=== PATIENT | female | born 2000 | race Caucasian/White ===

== ENCOUNTER 2020-09-18 17:24 | Emergency (ER) | payer BC ==
[~2020-09-18 17:24] MED LIST: AMOXICILLIN500 MG PO
[2020-09-18 20:03] LABS: RED BLOOD COUNT 4.5 M/UL (4.00-5.10); WHITE BLOOD COUNT 7.4 K/UL (4.5-11.0)
[2020-09-18 20:20] LABS: BUN/CREATININE RATIO 15 (0-10)
== END 2020-09-18 21:30 | disposition home or self-care (01) ==
LOC: ER1 17:24
PROVIDERS: Physician Assistant
DX: R00.2 Palpitations (principal); F41.9 Anxiety disorder, unspecified; R20.2 Paresthesia of skin; I51.9 Heart disease, unspecified
CPT/HCPCS: 36415; 71045; 80053; 81001; 82550; 82553; 83735; 83874; 84439; 84443; 84484; 84703; 85025; 87086; 93005; 96374; 96376; 99285; J2060

== ENCOUNTER → 2020-09-28 | Outpatient (CLI) | payer BC | LOC: US 10:05 | DX: N64.59 Other signs and symptoms in breast (principal) | CPT/HCPCS: 76641-LT; 76641-RT ==

== ENCOUNTER 2021-04-03 04:11 | Emergency (ER) | payer BC | END 2021-04-03 04:22 | disposition left against medical advice (07) | LOC: ER1 04:11 | DX: Z53.21 Procedure and treatment not carried out due to patient leaving prior to being seen by health care provider (principal) ==